=== PATIENT | male | born 1945 | race Hispanic/Latino ===

== ENCOUNTER 2019-05-27 20:38 | Emergency (ER) | payer OTHER ==
[~2019-05-27 20:38] MED LIST: AMOX1TAB16 PO; DOCU-275 PO; LEVO750T46 PO; MULT-1192 PO; OMEG1CAP43 PO
[2019-05-27] MEDS ORDERED: HYDRALAZINE HCL 20 MG/ML VIAL ONE (20:52)
[2019-05-27 21:02] LABS: BASOPHILS % (AUTO) 0.8 % (0.0-5.0); EOSINOPHILS % (AUTO) 0.6 % (0.0-8.0); HEMATOCRIT 43.6 % (42-54); LYMPHOCYTES % (AUTO) 12.5 % (21.0-51.0); MEAN CORPUSCULAR HEMOGLOBIN 30.9 pg (27.0-33.0); MEAN CORPUSCULAR HGB CONC 34.2 g/dL (32.0-36.0); MEAN CORPUSCULAR VOLUME 90.5 fL (79-99); MONOCYTES % (AUTO) 7.3 % (3.0-13.0); NEUTROPHILS % (AUTO) 78.4 % (40.0-77.0); PLATELET COUNT (AUTO) 213 K/uL (130-400); RED BLOOD CELL COUNT(AUTO) 4.82 MIL/uL (4.50-6.20); RED CELL DISTRIBUTION WIDTH 12.9 % (11.0-15.5)
[2019-05-27 21:15] LABS: INR 0.99 (0.85-1.15); PARTIAL THROMBOPLASTIN TIME 26.4 SEC (26.3-35.5); POTASSIUM 3.7 mmol/L (3.5-5.1); PROTHROMBIN TIME 10.4 SEC (9.6-11.6)
[2019-05-27 21:21] LABS: BILIRUBIN,TOTAL 0.8 mg/dL (0.2-1.0); TOTAL PROTEIN, SERUM 7.3 g/dL (6.0-8.3)
[2019-05-27] MEDS ORDERED: ACETAMINOPHEN 325 MG TAB ONE (22:52)
== END 2019-05-27 23:08 | disposition home or self-care (01) ==
LOC: EDH 20:38
DX: I16.0 Hypertensive urgency (principal); R51 Headache; F41.0 Panic disorder [episodic paroxysmal anxiety]; R42 Dizziness and giddiness
CPT/HCPCS: 36415; 70450; 80053; 82550; 84484; 85025; 85610; 85730; 93005; 96365; 99285; J0360

== ENCOUNTER → 2023-10-30 | Outpatient (CLI) | payer OTHER ==
[~2023-10-30] MED LIST changes: +DOCU-270 PO; -DOCU-275 PO; +FISH1CAP17 PO; -LEVO750T46 PO; +LEVO750T68 PO; -OMEG1CAP43 PO
== END | disposition home or self-care (01) ==
LOC: RAH 13:05
PROVIDERS: ATTEND Internal Medicine
DX: I35.8 Other nonrheumatic aortic valve disorders (principal); I51.7 Cardiomegaly; R01.1 Cardiac murmur, unspecified
CPT/HCPCS: 93306

== ENCOUNTER → 2023-12-25 | Outpatient (CLI) | payer OTHER | END | disposition home or self-care (01) | LOC: RAH 14:34 | PROVIDERS: ATTEND Internal Medicine | DX: M47.817 Spondylosis without myelopathy or radiculopathy, lumbosacral region (principal); M48.07 Spinal stenosis, lumbosacral region | CPT/HCPCS: 72148 ==